=== PATIENT | male | born 1960 | race Caucasian/White ===

== ENCOUNTER 2017-06-08 19:36 | Emergency (ER) | payer OTHER ==
[~2017-06-08] VITALS: Ht 175.3 cm; Wt 81.7 kg
[~2017-06-08 19:36] MED LIST: ALBU90OI INH; ALBU90OI61 INH; AMOX500 PO; ATOR20 PO; BUPR150T2; CEPH500 PO; CRUTCH4 USE; CYCL10 PO; Cyclobenzaprine5 MG PO; GABA300 PO; HYDACE5 PO; HYDACE5325 PO; HYDHCL25 PO; IBUP800 PO; Keflex500 MG PO; Monodox100 MG PO; Motrin600 MG PO; NAPR550 PO; Naprosyn500 MG PO; Norco 5-325 Ta1 EACH PO; OXYACE5T PO; PERM5TC TOP; PRED10 PO; PROCODE120 PO; PROM25 PO; Prednisone20 MG PO; RXHYDACE PO; UBID10; Ultram50 MG PO; Veetids 500500 MG PO; WELBUTRIN; Zithromax250 MG PO
== END 2017-06-08 21:12 | disposition home or self-care (01) ==
LOC: ER 19:36
DX: S61.210A Laceration without foreign body of right index finger without damage to nail, initial encounter (principal); S61.212A Laceration without foreign body of right middle finger without damage to nail, initial encounter; S61.214A Laceration without foreign body of right ring finger without damage to nail, initial encounter; S61.031A Puncture wound without foreign body of right thumb without damage to nail, initial encounter; J44.9 Chronic obstructive pulmonary disease, unspecified; F17.200 Nicotine dependence, unspecified, uncomplicated; W27.0XXA Contact with workbench tool, initial encounter
CPT/HCPCS: 12002; 73130; 99283

== ENCOUNTER 2017-08-24 04:32 | Emergency (ER) | payer OTHER ==
[~2017-08-24] VITALS: Ht 175.3 cm; Wt 90.7 kg
== END 2017-08-24 05:09 | disposition home or self-care (01) ==
LOC: ER 04:32
DX: K02.9 Dental caries, unspecified (principal); K03.81 Cracked tooth; J44.9 Chronic obstructive pulmonary disease, unspecified; F17.210 Nicotine dependence, cigarettes, uncomplicated
CPT/HCPCS: 99283

== ENCOUNTER 2017-08-25 23:38 | Emergency (ER) | payer OTHER ==
[~2017-08-25] VITALS: Ht 175.3 cm; Wt 72.6 kg
[2017-08-26] MEDS ORDERED: IBUP600 PO (00:45)
[2017-08-26] MEDS ORDERED: PENVK500 PO (00:45)
== END 2017-08-26 01:06 | disposition home or self-care (01) ==
LOC: ER 23:38
DX: K02.9 Dental caries, unspecified (principal); J44.9 Chronic obstructive pulmonary disease, unspecified; F17.210 Nicotine dependence, cigarettes, uncomplicated; Z79.2 Long term (current) use of antibiotics
CPT/HCPCS: 99283

== ENCOUNTER 2017-11-13 20:34 | Emergency (ER) | payer OTHER ==
[~2017-11-13] VITALS: Ht 175.3 cm; Wt 86.2 kg
[~2017-11-13 20:34] MED LIST changes: +IBUP600 PO; +PENVK500 PO
[2017-11-13] MEDS ORDERED: NAPR550 PO (23:06)
[2017-11-13] MEDS ORDERED: Amoxicillin500 MG PO (23:06)
== END 2017-11-13 23:22 | disposition home or self-care (01) ==
LOC: ER 20:34
DX: K02.9 Dental caries, unspecified (principal); J44.9 Chronic obstructive pulmonary disease, unspecified; F17.210 Nicotine dependence, cigarettes, uncomplicated
CPT/HCPCS: 99283

== ENCOUNTER 2017-12-04 13:29 | Emergency (ER) | payer OTHER ==
[~2017-12-04] VITALS: Ht 175.3 cm; Wt 90.1 kg
[~2017-12-04 13:29] MED LIST changes: +Amoxicillin500 MG PO
== END 2017-12-04 15:17 | disposition home or self-care (01) ==
LOC: ER 13:29
DX: S06.0X0A Concussion without loss of consciousness, initial encounter (principal); J44.9 Chronic obstructive pulmonary disease, unspecified; E78.00 Pure hypercholesterolemia, unspecified; F17.200 Nicotine dependence, unspecified, uncomplicated; Z79.1 Long term (current) use of non-steroidal anti-inflammatories (NSAID); W22.8XXA Striking against or struck by other objects, initial encounter
CPT/HCPCS: 70450; 99284-25

== ENCOUNTER 2020-12-03 21:06 | Emergency (ER) | payer OTHER ==
[~2020-12-03] VITALS: Ht 175.3 cm; Wt 81.7 kg
[2020-12-03] MEDS ORDERED: Cleocin HCl300 MG PO (22:01)
== END 2020-12-03 22:45 | disposition home or self-care (01) ==
LOC: ER 21:06
DX: L03.114 Cellulitis of left upper limb (principal); F17.210 Nicotine dependence, cigarettes, uncomplicated
CPT/HCPCS: 99283

== ENCOUNTER → 2022-04-04 | Outpatient (CLI) | payer OTHER ==
[~2022-04-04] MED LIST changes: +CHLO25A PO; +Cleocin HCl300 MG PO
[2022-04-04 17:03] LABS: Source, Urine Voided
[2022-04-04 19:02] LABS: Appearance, Urine Clear (Clear); Bilirubin, Urine Neg (Neg); Blood, Urine Neg (Neg); Color, Urine Yellow (P-Yellow); Glucose Qualitative, Urine Neg (Neg); Ketones, Urine Neg (Neg); Leukocyte Esterase, Urine 1+ (Neg); Nitrite, Urine Neg (Neg); Protein, Urine Neg (Neg); Specific Gravity, Urine 1.015 (1.003-1.022); Urobilinogen, Urine NORM (Normal)
[2022-04-04 19:19] LABS: Bacteria Mod /hpf; Red Blood Cells, Urine 0-2 /hpf (0-2); Squamous Epithelial Cells Rare /hpf (Few)
== END ==
LOC: LAB SHORT 17:01 → LAB 17:01
PROVIDERS: Nurse Practitioner Family
DX: R35.1 Nocturia (principal)
CPT/HCPCS: 81001; 87086

== ENCOUNTER 2022-06-06 07:50 | Emergency (ER) | payer OTHER ==
[~2022-06-06] VITALS: Ht 172.7 cm; Wt 95.2 kg
[2022-06-06] MEDS ORDERED: OMEP20ER PO (08:13)
[2022-06-06] MEDS ORDERED: TAMSULOSIN HCL0.4 M1 PO (08:13)
[2022-06-06] MEDS ORDERED: LORA10ER PO (08:13)
[2022-06-06 09:04] LABS: Influenza B, PCR NEGATIVE (NEGATIVE); Resp Syncytial Virus, PCR NEGATIVE (NEGATIVE); SARS-Cov-2 (COVID-19) PCR, MMC NEGATIVE (NEGATIVE)
[2022-06-06 09:13] LABS: Influenza A, PCR POSITIVE (NEGATIVE)
== END 2022-06-06 09:30 | disposition home or self-care (01) ==
LOC: ER 07:50
PROVIDERS: Emergency Medicine
DX: J10.1 Influenza due to other identified influenza virus with other respiratory manifestations (principal); E78.00 Pure hypercholesterolemia, unspecified; F17.210 Nicotine dependence, cigarettes, uncomplicated; J44.9 Chronic obstructive pulmonary disease, unspecified; Z79.899 Other long term (current) drug therapy
CPT/HCPCS: 0241U; 71046; A9270

== ENCOUNTER 2023-12-04 09:24 | Emergency (ER) | payer OTHER ==
[~2023-12-04] VITALS: Ht 172.7 cm; Wt 95.2 kg
[~2023-12-04 09:24] MED LIST changes: +LORA10ER PO; +OMEP20ER PO; +TAMSULOSIN HCL0.4 M1 PO
[2023-12-04 09:40] VITALS: BP 137/80
[2023-12-04] MEDS ORDERED: IBUP600 PO (10:27)
== END 2023-12-04 10:42 | disposition home or self-care (01) ==
LOC: ER 09:24
DX: S43.101A Unspecified dislocation of right acromioclavicular joint, initial encounter (principal); K21.9 Gastro-esophageal reflux disease without esophagitis; E78.5 Hyperlipidemia, unspecified; J44.9 Chronic obstructive pulmonary disease, unspecified; F17.210 Nicotine dependence, cigarettes, uncomplicated; Y09 Assault by unspecified means; Z79.899 Other long term (current) drug therapy
CPT/HCPCS: 73030; 99283-25